=== PATIENT | female | born 1995 | race Caucasian/White ===

== ENCOUNTER 2021-10-31 21:34 | Emergency (ER) | payer OTHER, MEDICAID, SELFPAY ==
[2021-10-31] VITALS (7 sets, daily range): BP systolic 82–120; BP diastolic 46–68; PULSE 78–103; RESP 14–20; TEMP 36.7; O2SAT 96–100; BMI 24.0
--- NOTE | 2021-10-31 21:37 | ED_ITS ---
HPI - Overdose <Christiano Huertas DO - Last Filed: 11/03/21 20:09> General Chief Complaint: Toxicology Problem Stated Complaint: OD Time Seen by Provider: 10/31/21 21:35 History of Present Illness HPI Narrative: 26-year-old female presents by EMS for evaluation of intentional overdose about 30-45 minutes prior to her arrival. She states that she is not suicidal nor homicidal but just wanted to go to sleep. She took an unknown quantity of unknown pills along with a large amount of vodka. She has not had any vomiting, she is feeling a bit sleepy. She has a few empty pill bottles including vitamin-D, Motrin 600 and Keflex that are written other people's names and are largely older prescriptions. She denies any history of the same. She has no seizure history. She is not dizzy or lightheaded. She denies any chest pain or shortness of breath. She denies any dysuria, frequency or urgency Related Data Allergies Allergy/AdvReac Type Severity Reaction Status Date / Time hydrocodone AdvReac Vomiting Verified 11/01/21 00:58 Review of Systems <Christiano Huertas DO - Last Filed: 11/03/21 20:09> Review of Systems Narrative: GENERAL: See HP HEENT: Denies sinus pain, ear pain, sore throat, difficulty swallowing, dizziness. RESPIRATORY: Denies dyspnea, cough, wheezing, hemoptysis, sputum. CARDIOVASCULAR: Denies chest pain, palpitations, orthopnea, edema, GASTROINTESTINAL: Denies nausea, vomiting, abdominal pain, diarrhea, constipation, melena. : Denies dysuria, frequency, incontinence, hematuria, urinary retention. MUSCULOSKELETAL: denies weakness, joint pain, or bony pain SKIN: Denies rash, skin lesions, or other NEUROLOGIC: Denies weakness, headache, numbness, change in speech, confusion, seizures, incoordination. PSYCHIATRIC: No concerning psychosocial issues. 12 point review of systems is negative except for those stated above Patient History <Christiano Huertas DO - Last Filed: 11/03/21 20:09> Social History Smoking Status: Current every day smoker Exam <DO Maria Ines Lam Last Filed: 11/03/21 20:09> Narrative Exam Narrative: GENERAL: [26 year old patient appears stated age. Well-developed patient, in mild distress. A&O x3, GCS 15, tearful HEAD: Atraumatic. Normocephalic. EYES: Pupils equal round and reactive. Extraocular motions intact. No scleral icterus. No injection or drainage. ENT: Nose without bleeding, purulent drainage. Throat without erythema, tonsillar hypertrophy or exudate. Airway patent. NECK: Trachea midline. Non tender CARDIOVASCULAR: Regular rate and rhythm without murmurs, gallops, or rubs. RESPIRATORY: Clear to auscultation. Breath sounds equal bilaterally. No wheezes, rales, or rhonchi. GASTROINTESTINAL: Abdomen soft, non-tender, nondistended. EXTREMITIES: No edema or joint tenderness. BACK: Nontender without deformity or crepitance. No flank tenderness. NEURO: AOx3. SKIN: No rash or erythema of visible areas Initial Vital Signs Initial Vital Signs: Vital Signs Temperature 98.1 F 10/31/21 21:35 Pulse Rate 96 H 10/31/21 21:35 Respiratory Rate 16 10/31/21 21:35 Blood Pressure 120/67 10/31/21 21:35 Pulse Oximetry 96 10/31/21 21:35 <Brenda Armenta DO - Last Filed: 11/01/21 18:17> Initial Vital Signs Initial Vital Signs: Vital Signs Temperature 98.1 F 10/31/21 21:35 Pulse Rate 96 H 10/31/21 21:35 Respiratory Rate 16 10/31/21 21:35 Blood Pressure 120/67 10/31/21 21:35 Pulse Oximetry 96 10/31/21 21:35 Course <Christaino Huertas DO - Last Filed: 11/03/21 20:09> Course Course Narrative: Many hours into the patient's observation nursing learns with the patient that her boyfriend is overseas and broke up with her which is likely the cause of today's event. She has been in touch with him via text message in apparently he is attempting to come home in response to this action. Orders Ordered: Discontinued Medications Charcoal (Activated Charcoal 50 Gm/240 Ml) 50 gm PO NOW ONE Stop: 10/31/21 21:36 Last Admin: 10/31/21 21:51 Dose: 50 gm Documented by: ZAYRA Al Hydrox/Mg Hydrox/Simethicone 20 ml/ Lidocaine HCl 15 ml 0 ml PO NOW ONE Stop: 10/31/21 22:47 Last Admin: 10/31/21 22:52 Dose: 20 ml Documented by: ZAYRA Sodium Chloride (Normal Saline 0.9%) 1,000 mls @ 150 mls/hr IV CONT ONEL Last Infusion: 10/31/21 22:52 Dose: 0 mls/hr Documented by: Infusion: 10/31/21 21:51 Dose: 999 mls/hr Documented by: Admin: 10/31/21 21:51 Dose: 150 mls/hr Documented by: ZAYRA Sodium Chloride (Normal Saline 0.9%) 1,000 mls @ 1,000 mls/hr IV BOLUS ONE Stop: 11/01/21 03:19 Last Infusion: 11/01/21 06:29 Dose: 0 mls/hr Documented by: Admin: 11/01/21 02:28 Dose: 1,000 mls/hr Documented by: JORDYN Ceftriaxone Sodium 1,000 mg/ (Sodium Chloride) 100 mls @ 200 mls/hr IV NOW ONE Stop: 11/01/21 05:55 Last Infusion: 11/01/21 06:40 Dose: 0 mls/hr Documented by: Admin: 11/01/21 06:11 Dose: 200 mls/hr Documented by: TRINH Lorazepam (Lorazepam 2 Mg/Ml Inj) 0.5 mg IV NOW ONE Stop: 11/01/21 02:21 Last Admin: 11/01/21 02:28 Dose: 0.5 mg Documented by: JORDYN Metoclopramide HCl (Metoclopramide 10 Mg/2 Ml Inj) 10 mg IV NOW ONE Stop: 11/01/21 00:59 Last Admin: 11/01/21 01:04 Dose: 10 mg Documented by: JORDYN Ondansetron HCl (Ondansetron 4 Mg/2 Ml Inj) 4 mg IV NOW ONE Stop: 11/01/21 00:23 Last Admin: 11/01/21 00:26 Dose: 4 mg Documented by: JORDYN Vital Signs Vital signs: Vital Signs - 8 hr 11/01/21 10:22 11/01/21 10:30 11/01/21 11:00 Pulse Rate 81 73 57 L Respiratory Rate 17 16 16 Blood Pressure 98/58 L 93/55 L 85/53 L Pulse Oximetry 99 98 99 11/01/21 11:30 11/01/21 11:49 11/01/21 12:00 Pulse Rate 56 L 81 83 Respiratory Rate 17 19 32 H Blood Pressure 85/51 L 94/61 93/59 L Pulse Oximetry 98 99 98 <Brenda Armenta, DO - Last Filed: 11/01/21 18:17> Orders Ordered: Discontinued Medications Charcoal (Activated Charcoal 50 Gm/240 Ml) 50 gm PO NOW ONE Stop: 10/31/21 21:36 Last Admin: 10/31/21 21:51 Dose: 50 gm Documented by: ZAYRA Al Hydrox/Mg Hydrox/Simethicone 20 ml/ Lidocaine HCl 15 ml 0 ml PO NOW ONE Stop: 10/31/21 22:47 Last Admin: 10/31/21 22:52 Dose: 20 ml Documented by: ZAYRA Sodium Chloride (Normal Saline 0.9%) 1,000 mls @ 150 mls/hr IV CONT ONEL Last Infusion: 10/31/21 22:52 Dose: 0 mls/hr Documented by: Infusion: 10/31/21 21:51 Dose: 999 mls/hr Documented by: Admin: 10/31/21 21:51 Dose: 150 mls/hr Documented by: ZAYRA Sodium Chloride (Normal Saline 0.9%) 1,000 mls @ 1,000 mls/hr IV BOLUS ONE Stop: 11/01/21 03:19 Last Infusion: 11/01/21 06:29 Dose: 0 mls/hr Documented by: Admin: 11/01/21 02:28 Dose: 1,000 mls/hr Documented by: JORDYN Ceftriaxone Sodium 1,000 mg/ (Sodium Chloride) 100 mls @ 200 mls/hr IV NOW ONE Stop: 11/01/21 05:55 Last Infusion: 11/01/21 06:40 Dose: 0 mls/hr Documented by: Admin: 11/01/21 06:11 Dose: 200 mls/hr Documented by: TRINH Lorazepam (Lorazepam 2 Mg/Ml Inj) 0.5 mg IV NOW ONE Stop: 11/01/21 02:21 Last Admin: 11/01/21 02:28 Dose: 0.5 mg Documented by: JORDYN Metoclopramide HCl (Metoclopramide 10 Mg/2 Ml Inj) 10 mg IV NOW ONE Stop: 11/01/21 00:59 Last Admin: 11/01/21 01:04 Dose: 10 mg Documented by: JORDYN Ondansetron HCl (Ondansetron 4 Mg/2 Ml Inj) 4 mg IV NOW ONE Stop: 11/01/21 00:23 Last Admin: 11/01/21 00:26 Dose: 4 mg Documented by: JORDYN Vital Signs Vital signs: Vital Signs - 8 hr 11/01/21 10:22 11/01/21 10:30 11/01/21 11:00 Pulse Rate 81 73 57 L Respiratory Rate 17 16 16 Blood Pressure 98/58 L 93/55 L 85/53 L Pulse Oximetry 99 98 99 11/01/21 11:30 11/01/21 11:49 11/01/21 12:00 Pulse Rate 56 L 81 83 Respiratory Rate 17 19 32 H Blood Pressure 85/51 L 94/61 93/59 L Pulse Oximetry 98 99 98 MDM - Overdose <Christiano Huertas DO - Last Filed: 11/03/21 20:09> Lab Data Result diagrams: 10/31/21 21:40 10/31/21 21:40 Labs: Lab Results 10/31/21 10/31/21 10/31/21 Range/Units 21:35 21:40 21:40 WBC 6.5 (4.5-11.0) X10^3/uL RBC 4.70 (4.0-5.2) X10^6/uL Hgb 13.9 (12.0-16.0) g/dL Hct 41.1 (36-46) % MCV 87.5 (80-100) fL MCH 29.5 (26-34) PG MCHC 33.7 (30-36) % RDW 14.4 (11.6-14.8) % Plt Count 279 (150-400) X10^3/uL Neut % (Auto) 42.9 L (50-75) % Lymph % (Auto) 51.9 H (25-40) % [place] % (Auto) 3.5 (3-14) % Eos % (Auto) 0.9 L (2-4) % Baso % (Auto) 0.8 (0-2) % Neut # (Auto) 2800 (5373-9248) /uL Lymph # (Auto) 3400 (1740-5024) /uL [place] # (Auto) 200 (0-900) /uL Eos # (Auto) 100 (0-450) /uL Baso # (Auto) 100 (0-100) /uL Sodium 146 H (137-145) mmol/L Potassium 4.3 (3.4-5.1) mmol/L Chloride 109 H (98-107) mmol/L Carbon Dioxide 29 (22-32) mmol/L BUN 9 (7-17) mg/dL Creatinine 0.80 (0.52-1.04) mg/dL Estimated GFR > 60.0 (>60) mL/min BUN/Creatinine Ratio 11.3 (6-22) Glucose 95 (70-100) mg/dL Lactate (0.7-2.1) mmol/L Calcium 8.9 (8.4-10.2) mg/dL Total Bilirubin 0.6 (0.2-1.3) mg/dL Conjugated Bilirubin 0.0 (0.0-0.3) md/dL Unconjugated Bilirubin 0.4 (0.0-1.1) mg/dL AST 39 H (14-36) IU/L ALT 17 (<35) IU/L Alkaline Phosphatase 77 (38-126) U/L Total Protein 7.9 (6.3-8.2) g/dL Albumin 4.6 (3.5-5.0) g/dL Globulin 3.3 (1.7-4.1) g/dL Albumin/Globulin Ratio 1.4 (1.0-2.8) Urine RBC (0-5/HPF) Urine WBC (0-5/HPF) Ur Squamous Epith Cells (0-5/HPF) Urine Bacteria (None) Ur Culture Indicated? Salicylates < 1.0 (<20) mg/dL U Opiates 300ng/mL cut (Negative) Ur Oxycodone Screen (Negative) Urine Methadone Screen (Negative) Acetaminophen < 10 L (10-30) ug/mL Ur Barbiturates Screen (Negative) U Tricyclic Antidepress (Negative) Ur Phencyclidine Scrn (Negative) Ur Amphetamines Screen (Negative) U Methamphetamines Scrn (Negative) Ur MDMA Scrn (Ecstasy) (Negative) U Benzodiazepines Scrn (Negative) Urine Cocaine Screen (Negative) U Marijuana (THC) Screen (Negative) Ethyl Alcohol 239 H ( - 10) mg/dL SARS-CoV-2 (PCR) Negative (Negative) 10/31/21 11/01/21 11/01/21 Range/Units 21:40 01:45 05:15 WBC (4.5-11.0) X10^3/uL RBC (4.0-5.2) X10^6/uL Hgb (12.0-16.0) g/dL Hct (36-46) % MCV (80-100) fL MCH (26-34) PG MCHC (30-36) % RDW (11.6-14.8) % Plt Count (150-400) X10^3/uL Neut % (Auto) (50-75) % Lymph % (Auto) (25-40) % [place] % (Auto) (3-14) % Eos % (Auto) (2-4) % Baso % (Auto) (0-2) % Neut # (Auto) (2219-9853) /uL Lymph # (Auto) (5629-3915) /uL [place] # (Auto) (0-900) /uL Eos # (Auto) (0-450) /uL Baso # (Auto) (0-100) /uL Sodium (137-145) mmol/L Potassium (3.4-5.1) mmol/L Chloride (98-107) mmol/L Carbon Dioxide (22-32) mmol/L BUN (7-17) mg/dL Creatinine (0.52-1.04) mg/dL Estimated GFR (>60) mL/min BUN/Creatinine Ratio (6-22) Glucose (70-100) mg/dL Lactate 2.0 (0.7-2.1) mmol/L Calcium (8.4-10.2) mg/dL Total Bilirubin (0.2-1.3) mg/dL Conjugated Bilirubin (0.0-0.3) md/dL Unconjugated Bilirubin (0.0-1.1) mg/dL AST (14-36) IU/L ALT (<35) IU/L Alkaline Phosphatase (38-126) U/L Total Protein (6.3-8.2) g/dL Albumin (3.5-5.0) g/dL Globulin (1.7-4.1) g/dL Albumin/Globulin Ratio (1.0-2.8) Urine RBC (0-5/HPF) Urine WBC (0-5/HPF) Ur Squamous Epith Cells (0-5/HPF) Urine Bacteria (None) Ur Culture Indicated? Salicylates (<20) mg/dL U Opiates 300ng/mL cut Negative (Negative) Ur Oxycodone Screen Negative (Negative) Urine Methadone Screen Negative (Negative) Acetaminophen < 10 L (10-30) ug/mL Ur Barbiturates Screen Negative (Negative) U Tricyclic Antidepress Negative (Negative) Ur Phencyclidine Scrn Negative (Negative) Ur Amphetamines Screen Negative (Negative) U Methamphetamines Scrn Negative (Negative) Ur MDMA Scrn (Ecstasy) Negative (Negative) U Benzodiazepines Scrn Negative (Negative) Urine Cocaine Screen Negative (Negative) U Marijuana (THC) Screen Negative (Negative) Ethyl Alcohol 160 H ( - 10) mg/dL SARS-CoV-2 (PCR) (Negative) 11/01/21 Range/Units 05:15 WBC (4.5-11.0) X10^3/uL RBC (4.0-5.2) X10^6/uL Hgb (12.0-16.0) g/dL Hct (36-46) % MCV (80-100) fL MCH (26-34) PG MCHC (30-36) % RDW (11.6-14.8) % Plt Count (150-400) X10^3/uL Neut % (Auto) (50-75) % Lymph % (Auto) (25-40) % [place] % (Auto) (3-14) % Eos % (Auto) (2-4) % Baso % (Auto) (0-2) % Neut # (Auto) (5033-2620) /uL Lymph # (Auto) (5317-8129) /uL [place] # (Auto) (0-900) /uL Eos # (Auto) (0-450) /uL Baso # (Auto) (0-100) /uL Sodium (137-145) mmol/L Potassium (3.4-5.1) mmol/L Chloride (98-107) mmol/L Carbon Dioxide (22-32) mmol/L BUN (7-17) mg/dL Creatinine (0.52-1.04) mg/dL Estimated GFR (>60) mL/min BUN/Creatinine Ratio (6-22) Glucose (70-100) mg/dL Lactate (0.7-2.1) mmol/L Calcium (8.4-10.2) mg/dL Total Bilirubin (0.2-1.3) mg/dL Conjugated Bilirubin (0.0-0.3) md/dL Unconjugated Bilirubin (0.0-1.1) mg/dL AST (14-36) IU/L ALT (<35) IU/L Alkaline Phosphatase (38-126) U/L Total Protein (6.3-8.2) g/dL Albumin (3.5-5.0) g/dL Globulin (1.7-4.1) g/dL Albumin/Globulin Ratio (1.0-2.8) Urine RBC 0-1/hpf (0-5/HPF) Urine WBC 30-100/hpf H (0-5/HPF) Ur Squamous Epith Cells 10-30 /hpf H (0-5/HPF) Urine Bacteria Many (>30) H (None) Ur Culture Indicated? Cult not indicated Salicylates (<20) mg/dL U Opiates 300ng/mL cut (Negative) Ur Oxycodone Screen (Negative) Urine Methadone Screen (Negative) Acetaminophen (10-30) ug/mL Ur Barbiturates Screen (Negative) U Tricyclic Antidepress (Negative) Ur Phencyclidine Scrn (Negative) Ur Amphetamines Screen (Negative) U Methamphetamines Scrn (Negative) Ur MDMA Scrn (Ecstasy) (Negative) U Benzodiazepines Scrn (Negative) Urine Cocaine Screen (Negative) U Marijuana (THC) Screen (Negative) Ethyl Alcohol ( - 10) mg/dL SARS-CoV-2 (PCR) (Negative) Urine Dip Bedside Urine Glucose Negative Bedside Urine Bilirubin - Negative Bedside Urine Ketone - Negative Urine Specific [place] 1.025 Bedside Urine Occult Blood +/- Bedside Urine pH 6.0 Bedside Urine Protein +/- 15 Bedside Urine Urobilinogen - Negative Bedside Urine Nitrite + Positive Bedside Urine Leukocytes ++ 125 Esterase <Brenda Armenta DO - Last Filed: 11/01/21 18:17> Lab Data Labs: Lab Results 10/31/21 10/31/21 10/31/21 Range/Units 21:35 21:40 21:40 WBC 6.5 (4.5-11.0) X10^3/uL RBC 4.70 (4.0-5.2) X10^6/uL Hgb 13.9 (12.0-16.0) g/dL Hct 41.1 (36-46) % MCV 87.5 (80-100) fL MCH 29.5 (26-34) PG MCHC 33.7 (30-36) % RDW 14.4 (11.6-14.8) % Plt Count 279 (150-400) X10^3/uL Neut % (Auto) 42.9 L (50-75) % Lymph % (Auto) 51.9 H (25-40) % [place] % (Auto) 3.5 (3-14) % Eos % (Auto) 0.9 L (2-4) % Baso % (Auto) 0.8 (0-2) % Neut # (Auto) 2800 (1779-5012) /uL Lymph # (Auto) 3400 (7686-9660) /uL [place] # (Auto) 200 (0-900) /uL Eos # (Auto) 100 (0-450) /uL Baso # (Auto) 100 (0-100) /uL Sodium 146 H (137-145) mmol/L Potassium 4.3 (3.4-5.1) mmol/L Chloride 109 H (98-107) mmol/L Carbon Dioxide 29 (22-32) mmol/L BUN 9 (7-17) mg/dL Creatinine 0.80 (0.52-1.04) mg/dL Estimated GFR > 60.0 (>60) mL/min BUN/Creatinine Ratio 11.3 (6-22) Glucose 95 (70-100) mg/dL Lactate (0.7-2.1) mmol/L Calcium 8.9 (8.4-10.2) mg/dL Total Bilirubin 0.6 (0.2-1.3) mg/dL Conjugated Bilirubin 0.0 (0.0-0.3) md/dL Unconjugated Bilirubin 0.4 (0.0-1.1) mg/dL AST 39 H (14-36) IU/L ALT 17 (<35) IU/L Alkaline Phosphatase 77 (38-126) U/L Total Protein 7.9 (6.3-8.2) g/dL Albumin 4.6 (3.5-5.0) g/dL Globulin 3.3 (1.7-4.1) g/dL Albumin/Globulin Ratio 1.4 (1.0-2.8) Urine RBC (0-5/HPF) Urine WBC (0-5/HPF) Ur Squamous Epith Cells (0-5/HPF) Urine Bacteria (None) Ur Culture Indicated? Salicylates < 1.0 (<20) mg/dL U Opiates 300ng/mL cut (Negative) Ur Oxycodone Screen (Negative) Urine Methadone Screen (Negative) Acetaminophen < 10 L (10-30) ug/mL Ur Barbiturates Screen (Negative) U Tricyclic Antidepress (Negative) Ur Phencyclidine Scrn (Negative) Ur Amphetamines Screen (Negative) U Methamphetamines Scrn (Negative) Ur MDMA Scrn (Ecstasy) (Negative) U Benzodiazepines Scrn (Negative) Urine Cocaine Screen (Negative) U Marijuana (THC) Screen (Negative) Ethyl Alcohol 239 H ( - 10) mg/dL SARS-CoV-2 (PCR) Negative (Negative) 10/31/21 11/01/21 11/01/21 Range/Units 21:40 01:45 05:15 WBC (4.5-11.0) X10^3/uL RBC (4.0-5.2) X10^6/uL Hgb (12.0-16.0) g/dL Hct (36-46) % MCV (80-100) fL MCH (26-34) PG MCHC (30-36) % RDW (11.6-14.8) % Plt Count (150-400) X10^3/uL Neut % (Auto) (50-75) % Lymph % (Auto) (25-40) % [place] % (Auto) (3-14) % Eos % (Auto) (2-4) % Baso % (Auto) (0-2) % Neut # (Auto) (9493-6929) /uL Lymph # (Auto) (9896-9553) /uL [place] # (Auto) (0-900) /uL Eos # (Auto) (0-450) /uL Baso # (Auto) (0-100) /uL Sodium (137-145) mmol/L Potassium (3.4-5.1) mmol/L Chloride (98-107) mmol/L Carbon Dioxide (22-32) mmol/L BUN (7-17) mg/dL Creatinine (0.52-1.04) mg/dL Estimated GFR (>60) mL/min BUN/Creatinine Ratio (6-22) Glucose (70-100) mg/dL Lactate 2.0 (0.7-2.1) mmol/L Calcium (8.4-10.2) mg/dL Total Bilirubin (0.2-1.3) mg/dL Conjugated Bilirubin (0.0-0.3) md/dL Unconjugated Bilirubin (0.0-1.1) mg/dL AST (14-36) IU/L ALT (<35) IU/L Alkaline Phosphatase (38-126) U/L Total Protein (6.3-8.2) g/dL Albumin (3.5-5.0) g/dL Globulin (1.7-4.1) g/dL Albumin/Globulin Ratio (1.0-2.8) Urine RBC (0-5/HPF) Urine WBC (0-5/HPF) Ur Squamous Epith Cells (0-5/HPF) Urine Bacteria (None) Ur Culture Indicated? Salicylates (<20) mg/dL U Opiates 300ng/mL cut Negative (Negative) Ur Oxycodone Screen Negative (Negative) Urine Methadone Screen Negative (Negative) Acetaminophen < 10 L (10-30) ug/mL Ur Barbiturates Screen Negative (Negative) U Tricyclic Antidepress Negative (Negative) Ur Phencyclidine Scrn Negative (Negative) Ur Amphetamines Screen Negative (Negative) U Methamphetamines Scrn Negative (Negative) Ur MDMA Scrn (Ecstasy) Negative (Negative) U Benzodiazepines Scrn Negative (Negative) Urine Cocaine Screen Negative (Negative) U Marijuana (THC) Screen Negative (Negative) Ethyl Alcohol 160 H ( - 10) mg/dL SARS-CoV-2 (PCR) (Negative) 11/01/21 Range/Units 05:15 WBC (4.5-11.0) X10^3/uL RBC (4.0-5.2) X10^6/uL Hgb (12.0-16.0) g/dL Hct (36-46) % MCV (80-100) fL MCH (26-34) PG MCHC (30-36) % RDW (11.6-14.8) % Plt Count (150-400) X10^3/uL Neut % (Auto) (50-75) % Lymph % (Auto) (25-40) % [place] % (Auto) (3-14) % Eos % (Auto) (2-4) % Baso % (Auto) (0-2) % Neut # (Auto) (8920-4557) /uL Lymph # (Auto) (4567-9856) /uL [place] # (Auto) (0-900) /uL Eos # (Auto) (0-450) /uL Baso # (Auto) (0-100) /uL Sodium (137-145) mmol/L Potassium (3.4-5.1) mmol/L Chloride (98-107) mmol/L Carbon Dioxide (22-32) mmol/L BUN (7-17) mg/dL Creatinine (0.52-1.04) mg/dL Estimated GFR (>60) mL/min BUN/Creatinine Ratio (6-22) Glucose (70-100) mg/dL Lactate (0.7-2.1) mmol/L Calcium (8.4-10.2) mg/dL Total Bilirubin (0.2-1.3) mg/dL Conjugated Bilirubin (0.0-0.3) md/dL Unconjugated Bilirubin (0.0-1.1) mg/dL AST (14-36) IU/L ALT (<35) IU/L Alkaline Phosphatase (38-126) U/L Total Protein (6.3-8.2) g/dL Albumin (3.5-5.0) g/dL Globulin (1.7-4.1) g/dL Albumin/Globulin Ratio (1.0-2.8) Urine RBC 0-1/hpf (0-5/HPF) Urine WBC 30-100/hpf H (0-5/HPF) Ur Squamous Epith Cells 10-30 /hpf H (0-5/HPF) Urine Bacteria Many (>30) H (None) Ur Culture Indicated? Cult not indicated Salicylates (<20) mg/dL U Opiates 300ng/mL cut (Negative) Ur Oxycodone Screen (Negative) Urine Methadone Screen (Negative) Acetaminophen (10-30) ug/mL Ur Barbiturates Screen (Negative) U Tricyclic Antidepress (Negative) Ur Phencyclidine Scrn (Negative) Ur Amphetamines Screen (Negative) U Methamphetamines Scrn (Negative) Ur MDMA Scrn (Ecstasy) (Negative) U Benzodiazepines Scrn (Negative) Urine Cocaine Screen (Negative) U Marijuana (THC) Screen (Negative) Ethyl Alcohol ( - 10) mg/dL SARS-CoV-2 (PCR) (Negative) Urine Dip Bedside Urine Glucose Negative Bedside Urine Bilirubin - Negative Bedside Urine Ketone - Negative Urine Specific [place] 1.025 Bedside Urine Occult Blood +/- Bedside Urine pH 6.0 Bedside Urine Protein +/- 15 Bedside Urine Urobilinogen - Negative Bedside Urine Nitrite + Positive Bedside Urine Leukocytes ++ 125 Esterase MDM Narrative Medical decision making narrative: I received sign-out from Dr. Huertas. I had seen evaluated patient myself. She is now awake alert she is quite remorseful. States that she has been under lot of stress she is not sleeping and just wanted to go to sleep. So she took whatever medicine she could including amoxicillin, Keflex, ibuprofen and vitamin D. she has been evaluated by social Work she is able to contract for safety. A friend is coming to get her and stay with her. At this time she does not meet admission criteria. I have discussed with her other sleeping methods such as Benadryl melatonin and she is given suicide resources. Naloxone at Discharge Patient criteria for naloxone at discharge: Not Appropriate for pt Discharge Plan Departure Patient Disposition: Home Clinical Impression: Overdose, Insomnia Instructions: DI for Suicidal Ideation-Adult Activity Restrictions/Additional Instructions: *You have been diagnosed with suicidal ideation *What to do: If you are feeling suicidal or having suicidal thoughts: Call: Suicide Hotline: Visit: www.[employer] Text: 606649 *Continue to take medications as directed Benadryl 25-50 mg at night to help with sleep (do not take more than that to help with sleep) Melatonin 5-10 mg at night to help with sleep *Follow up with your primary care provider in 2-3 days or call [phone] *Return to ER if you should have thoughts of suicide or self-harm on going insomnia or any new, worsening or concerning symptoms
[2021-10-31 21:48] LABS: Add Manual Diff / Slide Review NO; Basophils Absolute Auto 100 /uL (0-100); Basophils Percent Auto 0.8 % (0-2); Eosinophils Absolute Auto 100 /uL (0-450); Eosinophils Percent Auto 0.9 % (2-4); Hematocrit 41.1 % (36-46); Hemoglobin 13.9 g/dL (12.0-16.0); Lymphocytes Absolute Auto 3400 /uL (1100-4500); Lymphocytes Percent Auto 51.9 % (25-40); Mean Corpuscular HGB Conc 33.7 % (30-36); Mean Corpuscular Hemoglobin 29.5 PG (26-34); Mean Corpuscular Volume 87.5 fL (80-100); Monocytes Absolute Auto 200 /uL (0-900); Monocytes Percent Auto 3.5 % (3-14); Neutrophils Absolute Auto 2800 /uL (1500-7000); Neutrophils Percent Auto 42.9 % (50-75); Platelet Count 279 X10^3/uL (150-400); Red Cell Distribution Width 14.4 % (11.6-14.8); White Blood Cell Count 6.5 X10^3/uL (4.5-11.0)
[2021-10-31] MEDS: SODIUM CHLORIDE 0.9% 1,000 ML 150 ML IV (21:51)
[2021-10-31] MEDS: ACTIVATED CHARCOAL 50 GM/240 ML PO (21:51)
[2021-10-31 21:58] LABS: Chloride 109 mmol/L (98-107); Sodium 146 mmol/L (137-145)
[2021-10-31 21:59] LABS: Alanine Aminotransferase 17 IU/L (<35); Albumin 4.6 g/dL (3.5-5.0); Albumin Globulin Ratio 1.4 (1.0-2.8); Alkaline Phosphatase 77 U/L (38-126); Aspartate Aminotransferase 39 IU/L (14-36); BUN Creatinine Ratio 11.3 (6-22); Bilirubin Total 0.6 mg/dL (0.2-1.3); Bilirubin Unconjugated 0.4 mg/dL (0.0-1.1); Blood Urea Nitrogen 9 mg/dL (7-17); Calcium 8.9 mg/dL (8.4-10.2); Carbon Dioxide 29 mmol/L (22-32); Estimated Glomerular Filt Rate > 60.0 mL/min (>60); Globulin 3.3 g/dL (1.7-4.1); Glucose 95 mg/dL (70-100); Total Protein 7.9 g/dL (6.3-8.2)
[2021-10-31 22:02] LABS: Potassium 4.3 mmol/L (3.4-5.1)
[2021-10-31 22:03] LABS: COVID19 -Nasal RAPID Negative (Negative)
[2021-10-31 22:10] LABS: Acetaminophen < 10 ug/mL (10-30); Ethanol (ETOH) 239 mg/dL; HEMOLYSIS 85 (0-50); Salicylate < 1.0 mg/dL (<20)
[2021-10-31] MEDS: ONDANSETRON 4 MG/2 ML INJ (22:30)
[2021-10-31] MEDS: MAG HYDROX/ALUMINUM/SIMETH SUS 20 ML, LIDOCAINE VISCOUS 2% 15 ML PO (22:52)
--- NOTE | 2021-10-31 23:01 | PC.NURSE ---
Pt given permission for [facility] to come in and speak to her.
--- NOTE | 2021-10-31 23:02 | PC.NURSE ---
Pt unable to finish activated charcoal. given water by request. given zofran for nausea. pt with small amount of emesis shortly after. c/o throat burning. given GI cocktail. Advised labs need to be redrawn at 4hr noel and pt will be staying overnight to be evaluated by [facility] PUSHER in the morning. agreeable at this time. Given water and blankets and laying on stretcher trying to sleep. remains on cardiac monitoring. NAD.
[2021-11-01] VITALS (35 sets, daily range): BP systolic 78–106; BP diastolic 43–62; PULSE 56–105; RESP 14–32; O2SAT 93–100
[2021-11-01] MEDS: ONDANSETRON 4 MG/2 ML INJ IV (00:26)
--- NOTE | 2021-11-01 00:39 | PC.NURSE ---
Pt awake and vomiting, Dr Huertas aware, order received for additional dose of zofran.
[2021-11-01] MEDS: METOCLOPRAMIDE 10 MG/2 ML INJ IV (01:04)
[2021-11-01 02:04] LABS: Acetaminophen < 10 ug/mL (10-30); Ethanol (ETOH) 160 mg/dL
[2021-11-01] MEDS: SODIUM CHLORIDE 0.9% 1,000 ML 1000 ML IV (02:28)
[2021-11-01] MEDS: LORazepam 2 MG/ML INJ 0.5 MG IV (02:28)
[2021-11-01 05:24] LABS: UR Morphine/Opiate cutoff 300 Negative (Negative); Ur Creatinine Normal (Normal); Ur Specific Gravity Normal (Normal); Urine Amphetamines Negative (Negative); Urine Barbiturates Negative (Negative); Urine Benzodiazepines Negative (Negative); Urine Cocaine Negative (Negative); Urine MDMA Negative (Negative); Urine Methadone Negative (Negative); Urine Methamphetamines Negative (Negative); Urine Oxycodone Negative (Negative); Urine Phencyclidine Negative (Negative); Urine Tetrahydrocannabinol Negative (Negative); Urine Tricyclic Antidepressant Negative (Negative); Urine pH Normal (Normal)
[2021-11-01 05:46] LABS: RBC Urine 0-1/HPF (0-5/HPF)
[2021-11-01 05:47] LABS: Bacteria Urine Many (>30); Culture Indicated Urine Cult Not Indicated; Squamous Epithelial Cell Urine 10-30 /HPF (0-5/HPF); WBC Urine 30-100/HPF (0-5/HPF)
[2021-11-01] MEDS: cefTRIAXone 1,000 MG in SODIUM CHLORIDE 0.9% 100 ML 200 ML IV (06:11)
--- NOTE | 2021-11-01 08:56 | PC.NURSE ---
Pt lying quietly in bed. Resp even and unlabored. VS WNL. Breakfast at the bedside but pt allowed to sleep. Red vape found with pt's belongings put with pt's chart
--- NOTE | 2021-11-01 10:07 | PC.NURSE ---
Pt's BP was reading low. Pt had her arm above her head and the cuff was put over a sweatshirt. Pt was changed into a gown and repositioned. BP up WNL. Pt speaking clearly, asking when she can leave and I mentioned that [employer] arrives at 1200 and we would like the pt to speak to her. Pt agreeable. Dr. Armenta made aware of BP
--- NOTE | 2021-11-01 10:30 | PC.NURSE ---
Pt ambulated to bathroom with a steady gate. Drinking water and a milk. Talking on her cell phone calmly
--- NOTE | 2021-11-01 10:35 | PC.NURSE ---
IV insertion site was oozing blood. Dr. Armenta gave okay to remove IV
--- NOTE | 2021-11-01 12:56 | CM.SWNOTE ---
HUMANE AGENT Assessment HUMANE AGENT - Dress Fitter Assessment HUMANE AGENT - Dress Fitter Assessment Start: 11/01/21 12:25 Freq: Status: Discharge Protocol: Document 11/01/21 12:25 LN (Rec: 11/01/21 12:55 LN [id number]) HUMANE AGENT/Dress Fitter Assessment Time Spent with Patient Start date 11/01/21 Visit Start Time 11:50 End date 11/01/21 Visit End Time 12:05 Total time Care Management spent on 15 patient visit-in minutes Mental Health Screening Include Onset, Duration, Intensity Presenting Problem Patient presents to ED via EMS after taking mulitple oxycodone, hydrocodone, antibiotics medications and vodka intentionally in attempt to go to sleep. Patient denies SI at presentation to ED and during assessment with HUMANE AGENT. Precipitating Event(s) Patient endorses trouble staying asleep at night. Patient endorses that her fiance has been deployed since July and she does not know when he will return. Patient endorses that she made a stupid decision. Patient Strengths Patient has good supports, shows insights and denies SI or any intention to harm her self. Current Behavioral Health Provider(s) No MH providers but patient is Include Facility, Provider, Ph. # open to receive information about providers. Psych. Hx Mental Health and Chemical Patient denies any MH hx or dx Dependency . Patient endorse ETOH and nicotene use and denies use of other substances. Family Hx of Behavioral Abuse None reported Psychiatric Hospitalizations (date(s)/ No hx. location) Psychosocial information & Support Patient is 26 y/o female who Systems resides in [place]. Patient' s fiance is on deployment and it is unknown when he will return. Patient endorses friends and supports from work and family as supports. School/Work Patient endorses she works at [employer] in [employer] Legal Concerns Legal Matters - Outstanding Issues None reported Mental Status Orientation (Person/Place/Time) A/Ox4 Stated Mood good and tired Affect (Congruent with Mood?) Euthymic, full range, congruent with mood Thought Content - Specify/Describe None reported Obsessions, Delusions, Hallucinations Thought Processes (Tzfzvbp-Byuxfzeq-Sqpb coherent, logical Ksaeigui-Opakdmya-Yagxknkmol- Udovpvcezonadq-Bpbclax-Flubdevlkprl- Thought Blocking) Speech (Nhcaeo-Ihfm-Htwsekp-Rapid-Soft- normal Loud-Pressured) Motor (Zqlate-Goatzkozl-Zcjv-Other) normal, not formally assessed Insight (Cemt-Jlij-Oqlm/Limited) good/fair during assessment Judgement (Rtiq-Pdwt-Uojh/Limited) good/fair during assessment Impulse Control (Adequate-Impaired) adequate Memory (Etuixkmbz-Xpddps-Pemnhf, intact, not formally assessed Impaired-Intact) Concentration (Intact-Impaired) intact Attention (Intact-Impaired) intact Behavior (Appropriate-Inappropriate) appropriate Additional Comment Patient is calm and communicative Risk Assessment Suicidal Ideation (Plan) No Homicidal Ideation (Plan) No Comment Patient statest hat she sees suicide as a drastic measure and short fix. Intervention Intervention HUMANE AGENT enters room to meet with patient. Patient endorses that her intention was to go to sleep prior to taking medications and ETOH. Patient denies SI and states that she has no intention to kill herself and denies history of SI. Patient states that she has trouble staying asleep and has had some added stress of her fiance being away on deployment since July. Patient endorses supports and states that her mother, brother and fiance know about her presentation to the ED. Patient states her safety at home and her confidence in returning home. HUMANE AGENT asks about outpatient providers and patient states that she is interested in receiving information about it . It is the opinion of this HUMANE AGENT that patient is safe to d/c to home. HUMANE AGENT to provide patient with crisis resources and MH provider information. HUMANE AGENT reviews the above with ED provider Dr. Armenta who indicates agreement and understanding. Plan RA Plan When medically clear patient to d/c to home via transportation from friend. MARYAN Padron
== END 2021-11-01 12:44 | disposition home or self-care (01) ==
PROVIDERS: Emergency Medicine; Emergency Provider Emergency Medicine
DX: T36.0X1A Poisoning by penicillins, accidental (unintentional), initial encounter (principal); T36.1X1A Poisoning by cephalosporins and other beta-lactam antibiotics, accidental (unintentional), initial encounter; T39.311A Poisoning by propionic acid derivatives, accidental (unintentional), initial encounter; T45.2X1A Poisoning by vitamins, accidental (unintentional), initial encounter; G47.00 Insomnia, unspecified; Z20.822 Contact with and (suspected) exposure to COVID-19
CPT/HCPCS: 36415; 80053; 80076; 80305; 80320; 80329; 81003; 81015; 83605; 85025; 87635; 96361; 96365; 96375; 99284; C9803; G0480; J0696; J2060; J2405; J2765